=== PATIENT | male | born 1925 | race Caucasian/White ===

== ENCOUNTER → 2016-12-13 | Outpatient (CLI) | payer MEDICARE, BC ==
[2015-04-13 15:00] VITALS: BP 151/70
[~2016-12-13] MED LIST: ACET325T9 PO; ACYC400T PO; AMLO5TAB2 PO; ASPI-482 PO; ATEN50TA PO; FAMO20TA5 PO; MULT-208 PO; NITR0.4T6 SL; OMEG10006 PO; OMEP20CA9 PO; PRED5DRO6 OD; PROP15DR EACHEYE; SIMV10TA3 PO
--- NOTE | 2016-12-13 15:24 | KCIC ---
MR LUMBAR SPINE HISTORY:Reason For StudyReason: LOW BACK PAIN SINCE OCTOBER 2016 / Spl. Instructions: / History: Pain and radiculitis Oct 2016, Rt hip pain Technique: Sagittal T2, sagittal STIR, and sagittal T1-weighted images were obtained. Additional axial T1 and T2 weighted imaging was also performed. FINDINGS: There is an acute superior endplate compression fracture at L5. Edema is noted throughout this vertebral body. There is retropulsion of the superior endplate which causes moderate right lateral recess stenosis. The remaining vertebral body heights are well maintained. The remaining disc space heights are also well maintained visualized intra-abdominal contents demonstrates a cortical cyst the right kidney that measures 8 millimeters. Impression: - Acute superior endplate compression fracture at L5. There is retropulsion of the superior endplate that causes moderate right lateral recess stenosis. Electronically signed by: Chance Holley (Dec 13, 2016 15:23:04)
--- NOTE | 2016-12-13 16:35 | KCIC ---
PROCEDURE Two-view right hip HISTORY Right hip pain and radiculitis. COMPARISON None FINDINGS Bone demineralization identified. No evidence of an acute fracture. No bone destruction. Joint space is intact. Soft tissues grossly unremarkable. IMPRESSION No evidence of acute fracture or dislocation Electronically signed by: Prakash Krishnamurthy MD (Dec 13, 2016 16:33:48)
== END | disposition home or self-care (01) ==
LOC: KCIC MRI 14:21
PROVIDERS: ATTEND Anesthesiology Pain Medicine
DX: M25.551 Pain in right hip (principal); M54.5 Low back pain; M48.56XA Collapsed vertebra, not elsewhere classified, lumbar region, initial encounter for fracture; M54.16 Radiculopathy, lumbar region
CPT/HCPCS: 72148; 73502